=== PATIENT | male | born 1960 | race Caucasian/White ===

== ENCOUNTER 2018-09-21 19:13 | Emergency (ER) | payer OTHER ==
[2018-09-21] MEDS ORDERED: KETOROLAC 30 MG/ML INJ ONE (20:02)
[2018-09-21] MEDS ORDERED: NA CHLORIDE 0.9% 1,000 ML ONE (20:02)
[2018-09-21 20:17] LABS: Absolute Lymphocytes (CBC) 1.9 K/uL (0.7-4.9); Absolute Monocytes 0.8 K/uL (0.1-1.3); Absolute Neutrophil 8.7 K/uL (1.8-8.0); Basophils % 0.9 % (0-1.3); Eosinophils % 2.2 % (0-4.4); Hematocrit 46.6 % (39.6-49.0); Lymphocytes % 15.9 % (15.3-44.8); Monocytes % 6.7 % (3.3-12.3); RBC Red Blood Cell Count 4.73 M/uL (4.33-5.43)
[2018-09-21 20:33] LABS: Albumin 3.7 g/dL (3.4-5.0); Bilirubin Direct 0.1 mg/dL (0-0.2); Bilirubin Total 0.4 mg/dL (0.2-1.0); Potassium 3.8 mmol/L (3.5-5.1); Protein, Total 7.8 g/dL (6.4-8.2)
--- NOTE | 2018-09-21 20:39 | RAD REPORT ---
EXAM DESCRIPTION: CT - Stone Protocol - 09/21/2018 7:54 pm CLINICAL HISTORY: Flank pain. right flank pain COMPARISON: No comparisons TECHNIQUE: Axial images were obtained without oral or IV contrast. Lack of contrast limits solid org an and vascular assessment. The [id number]-[id number] spans the entirety of the system partially obscuring uppermost abdomen and lung bases. Coronal reformatted images were obtained and reviewed. All CT scans are performed using dose optimization technique as appropriate and may include automated exposure control or mA/KV adjustment according to patient size. FINDINGS: The lower lung garza are clear. Imaged portions of the liver and spleen show no suspicious findings on non-contrast imaging. The panc reas and adrenal glands are normal. No pathologic lymphadenopathy in the abdomen or pelvis. A large irregular mass is suspected in the upper right kidney measuring 5.5 x 4.5 cm. There is expans ion of the right renal vein filled with intermediate density material likely tumor thrombus. Extensio n to the level of the IVC is suspected. No bowel obstruction, free air, free fluid or abscess. Normal appendix noted. No significant bony abnormality. IMPRESSION: Large irregular right upper pole renal mass (5.5 x 4.5 cm) most compatible with renal ce ll carcinoma. 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
--- NOTE | 2018-09-21 21:15 | ER ---
Nurse's Notes [facility] Name: Afshin Perkins Age: 58 yrs Sex: Male : 1960 Arrival Date: 09/21/2018 Time: 19:15 Bed 8 Private MD: Diagnosis: Right renal mass ( possible renal cell Ca. ) Presentation: 09/21 19:31 Presenting complaint: Patient states: "I had this sudden ride sided back pain that came jd3 on while I was sitting down. sitting still I don't have any pain, but if I move a certain way it hurts rally bad.". Transition of care: patient was not received from another setting of care. Onset of symptoms was September 21, 2018. Risk Assessment: Do you want to hurt yourself or someone else? Patient reports no desire to harm self or others. Initial Sepsis Screen: Does the patient meet any 2 criteria? No. Patient's initial sepsis screen is negative. Does the patient have a suspected source of infection? No. Patient's initial sepsis screen is negative. Care prior to arrival: None. 19:31 Method Of Arrival: Wheelchair jd3 19:31 Acuity: KARLA 3 jd3 Historical: - Allergies: 19:33 No Known Allergies; jd3 - Home Meds: 19:33 None [Active]; jd3 - PMHx: 19:33 None; jd3 - PSHx: 19:33 None; jd3 - Immunization history:: Adult Immunizations up to date. - Social history:: Smoking status: Patient uses tobacco products, smokes one pack cigarettes per day. - Ebola Screening: : Patient negative for fever greater than or equal to 101.5 degrees Fahrenheit, and additional compatible Ebola Virus Disease symptoms. Screenin:36 Abuse screen: Denies threats or abuse. Nutritional screening: No deficits noted. jd3 Tuberculosis screening: No symptoms or risk factors identified. Fall Risk Ambulatory Aid- None/Bed Rest/Nurse Assist (0 pts). Gait- Normal/Bed Rest/Wheelchair (0 pts) Mental Status- Oriented to own ability (0 pts). Total Walker Fall Scale indicates No Risk (0-24 pts). Assessment: 19:34 General: Appears in no apparent distress. uncomfortable, Behavior is calm, cooperative, jd3 appropriate for age. Pain: Complains of pain in posterior aspect of right lateral abdomen Pain does not radiate. Pain currently is 0 out of 10 on a pain scale. at worst was 10 out of 10 on a pain scale. Quality of pain is described as sharp. Neuro: Level of Consciousness is awake, alert, obeys commands, Oriented to person, place, time, situation, Appropriate for age. Cardiovascular: Denies chest pain, Capillary refill < 3 seconds Patient's skin is warm and dry. Respiratory: Reports shortness of breath with pain Airway is patent Respiratory effort is even, unlabored, Respiratory pattern is regular, symmetrical, Breath sounds are clear bilaterally. GI: No signs and/or symptoms were reported involving the gastrointestinal system. : No signs and/or symptoms were reported regarding the genitourinary system. EENT: No signs and/or symptoms were reported regarding the EENT system. Derm: Skin is intact, Skin is dry, Skin is normal, Skin temperature is warm. Musculoskeletal: Circulation, motion, and sensation intact. Range of motion: intact in all extremities. 20:40 Reassessment: Patient appears in no apparent distress at this time. Patient and/or jd3 family updated on plan of care and expected duration. Pain level reassessed. Patient is alert, oriented x 3, equal unlabored respirations, skin warm/dry/pink. Patient states feeling better. 21:28 Reassessment: Patient appears in no apparent distress at this time. Patient and/or jd3 family updated on plan of care and expected duration. Pain level reassessed. Patient is alert, oriented x 3, equal unlabored respirations, skin warm/dry/pink. Vital Signs: 19:33 BP 125 / 82; Pulse 66; Resp 16 S; Temp 98.3(O); Pulse Ox 98% on R/A; Weight 61.23 kg jd3 (R); Height 5 ft. 1 in. (154.94 cm) (R); Pain 0/10; 20:40 BP 96 / 63; Pulse 57; Resp 16 S; Pulse Ox 99% on R/A; jd3 19:33 Body Mass Index 25.51 (61.23 kg, 154.94 cm) jd3 ED Course: 19:15 Patient arrived in ED. am2 19:28 Gregory Ramires MD is Attending Physician. pkl 19:31 Phipps, Marques, RN is Primary Nurse. jd3 19:33 Triage completed. jd3 19:34 Arm band placed on. jd3 19:37 Patient has correct armband on for positive identification. Bed in low position. Call jd3 light in reach. Side rails up X 1. Adult w/ patient. 19:42 Patient moved to NM via wheelchair. 2 19:54 CT completed. Patient tolerated procedure well. Patient moved back from NM. in 19:54 CT Stone Protocol In Process Unspecified. EDMS 20:05 Inserted saline lock: 20 gauge in right antecubital area, using aseptic technique. jd3 Blood collected. 21:13 Franko Hawk MD is Referral Physician. pkl 21:28 No provider procedures requiring assistance completed. IV discontinued, intact, jd3 bleeding controlled, No redness/swelling at site. Pressure dressing applied. Administered Medications: 20:13 Drug: NS 0.9% 1000 ml Route: IV; Rate: 1000 ml; Site: right antecubital; jd3 21:29 Follow up: Response: No adverse reaction; IV Status: Completed infusion jd3 20:13 Drug: TORadol 30 mg Route: IVP; Site: right antecubital; jd3 21:29 Follow up: Response: No adverse reaction jd3 Outcome: 21:14 Discharge ordered by . pkl 21:28 Discharged to home ambulatory, with family. jd3 21:28 Condition: stable 21:28 Discharge instructions given to family, Instructed on discharge instructions, follow up and referral plans. medication usage, Demonstrated understanding of instructions, follow-up care, medications, Prescriptions given X 1. 21:29 Patient left the ED. jd3 Signatures: Dispatcher [employer] EDMS Gregory Ramires MD MD pkMichael Campoverde Amanda am2 McGuire, Victoria 2 Marques Phipps RN RN jd3
--- NOTE | 2018-09-21 21:15 | EDPHYS ---
Physician Documentation [facility] Name: Afshin Perkins Age: 58 yrs Sex: Male : 1960 Arrival Date: 09/21/2018 Time: 19:15 Bed 8 Private MD: ED Physician Gregory Ramires HPI: 09/21 19:41 This 58 yrs old Male presents to ER via Wheelchair with complaints of Low pkl Back Pain - right side. 19:41 The patient presents with pain that is acute. The symptoms are located in the right pkl flank. The pain does not radiate. Onset: The symptoms/episode began/occurred suddenly, 2 hour(s) ago. Associated signs and symptoms: The patient has no apparent associated signs or symptoms. Historical: - Allergies: 19:33 No Known Allergies; jd3 - Home Meds: 19:33 None [Active]; jd3 - PMHx: 19:33 None; jd3 - PSHx: 19:33 None; jd3 - Immunization history:: Adult Immunizations up to date. - Social history:: Smoking status: Patient uses tobacco products, smokes one pack cigarettes per day. - Ebola Screening: : Patient negative for fever greater than or equal to 101.5 degrees Fahrenheit, and additional compatible Ebola Virus Disease symptoms. ROS: 19:41 Eyes: Negative for injury, pain, redness, and discharge, ENT: Negative for injury, pkl pain, and discharge, Neck: Negative for injury, pain, and swelling, Cardiovascular: Negative for chest pain, palpitations, and edema, Respiratory: Negative for shortness of breath, cough, wheezing, and pleuritic chest pain, Abdomen/GI: Negative for abdominal pain, nausea, vomiting, diarrhea, and constipation. 19:41 Back: Positive for flank pain, on the right. 19:41 : Negative for urinary symptoms. 19:41 MS/extremity: Negative for acute changes. 19:41 Skin: Negative for rash. 19:41 Neuro: Negative for altered mental status. Exam: 19:41 Head/Face: Normocephalic, atraumatic. Eyes: Pupils equal round and reactive to light, pkl extra-ocular motions intact. Lids and lashes normal. Conjunctiva and sclera are non-icteric and not injected. Cornea within normal limits. Periorbital areas with no swelling, redness, or edema. ENT: Nares patent. No nasal discharge, no septal abnormalities noted. Tympanic membranes are normal and external auditory canals are clear. Oropharynx with no redness, swelling, or masses, exudates, or evidence of obstruction, uvula midline. Mucous membranes moist. Neck: Trachea midline, no thyromegaly or masses palpated, and no cervical lymphadenopathy. Supple, full range of motion without nuchal rigidity, or vertebral point tenderness. No Meningismus. Chest/axilla: Normal chest wall appearance and motion. Nontender with no deformity. No lesions are appreciated. Cardiovascular: Regular rate and rhythm with a normal S1 and S2. No gallops, murmurs, or rubs. Normal PMI, no JVD. No pulse deficits. Respiratory: Lungs have equal breath sounds bilaterally, clear to auscultation and percussion. No rales, rhonchi or wheezes noted. No increased work of breathing, no retractions or nasal flaring. Abdomen/GI: Soft, non-tender, with normal bowel sounds. No distension or tympany. No guarding or rebound. No evidence of tenderness throughout. 19:41 Back: pain, that is moderate, of the right flank. 19:41 : Exam negative for acute changes. 19:41 Musculoskeletal/extremity: Exam is negative for acute changes. 19:41 Skin: Exam negative for rash. 19:41 Neuro: Orientation: is normal, Mentation: is normal, Cranial nerves: grossly normal, Motor: is normal. Vital Signs: 19:33 BP 125 / 82; Pulse 66; Resp 16 S; Temp 98.3(O); Pulse Ox 98% on R/A; Weight 61.23 kg jd3 (R); Height 5 ft. 1 in. (154.94 cm) (R); Pain 0/10; 20:40 BP 96 / 63; Pulse 57; Resp 16 S; Pulse Ox 99% on R/A; jd3 19:33 Body Mass Index 25.51 (61.23 kg, 154.94 cm) jd3 MDM: 19:28 Patient medically screened. pkl 21:09 Data reviewed: vital signs, nurses notes, lab test result(s), radiologic studies, CT pkl scan. ED course: Talked to Dr. Hawk. Will see patient in the office in the morning. Discussed lab. and CT Scan results with patient and son. To see Dr. Hawk in the morning. Instructions understood. 09/21 19:40 Order name: Basic Metabolic Panel; Complete Time: 20:56 pkl 09/21 19:40 Order name: CBC with Diff; Complete Time: 20:56 pkl 09/21 19:40 Order name: Creatinine for Radiology; Complete Time: 20:56 pkl 09/21 19:40 Order name: Hepatic Function; Complete Time: 20:56 pkl 09/21 19:40 Order name: Lipase; Complete Time: 20:56 pkl 09/21 19:55 Order name: Urine Dipstick--Ancillary (enter results) mw2 09/21 19:40 Order name: IV Saline Lock; Complete Time: 20:09 pkl 09/21 19:40 Order name: Labs collected and sent; Complete Time: 20:09 pkl 09/21 19:40 Order name: CT Stone Protocol; Complete Time: 20:56 pkl Administered Medications: 20:13 Drug: NS 0.9% 1000 ml Route: IV; Rate: 1000 ml; Site: right antecubital; jd3 21:29 Follow up: Response: No adverse reaction; IV Status: Completed infusion jd3 20:13 Drug: TORadol 30 mg Route: IVP; Site: right antecubital; jd3 21:29 Follow up: Response: No adverse reaction jd3 Disposition: 09/21/18 21:14 Discharged to Home. Impression: Right renal mass ( possible renal cell Ca. ). - Condition is Stable. - Prescriptions for Ultram 50 mg Oral Tablet - take 1 tablet by ORAL route every 8 hours As needed; 30 tablet. - Medication Reconciliation Form, Thank You Letter, Antibiotic Education, Prescription Opioid Use form. - Follow up: Franko Hawk MD; When: Tomorrow; Reason: Re-evaluation by your physician. - Problem is new. - Symptoms are unchanged. Signatures: Dispatcher [employer] Gregory Zhu MD MD pkl Davies, Jonathon RN RN jd3 Corrections: (The following items were deleted from the chart) 21:29 21:14 09/21/2018 21:14 Discharged to Home. Impression: Right renal mass ( possible jd3 renal cell Ca. ). Condition is Stable. Forms are Medication Reconciliation Form, Thank You Letter, Antibiotic Education, Prescription Opioid Use. Follow up: Franko Hawk; When: Tomorrow; Reason: Re-evaluation by your physician. Problem is new. Symptoms are unchanged. pkl
[2018-09-21 22:19] LABS: Urine Blood TRACE (NEG); Urine Glucose NEGATIVE (NEG); Urine Protein TRACE (NEG); Urine Specific Gravity >1.030 (1.005-1.030)
== END 2018-09-21 21:29 | disposition home or self-care (01) ==
LOC: ER 19:13
DX: N28.89 Other specified disorders of kidney and ureter (principal); I82.3 Embolism and thrombosis of renal vein; F17.210 Nicotine dependence, cigarettes, uncomplicated
CPT/HCPCS: 36415; 74176; 76377; 80048; 80076; 81003; 83690; 85025; 96361; 96374; 99284; J7030